=== PATIENT | female | born 1945 | race Caucasian/White ===

== ENCOUNTER 2021-01-27 10:24 | Inpatient (IN) | payer MEDICARE ==
[~2021-01-27] VITALS: Ht 170.2 cm; Wt 64.4 kg
[2021-01-27 11:50] LABS: BASOPHILS ABSOLUTE AUTO 0.04 K/mm3 (0.00-0.23); BASOPHILS PERCENT AUTO 0 % (0-2); EOSINOPHILS ABSOLUTE AUTO 0.13 K/mm3 (0.00-0.68); EOSINOPHILS PERCENT AUTO 2 % (0-6); Hematocrit 47.3 % (33.0-51.0); Hemoglobin 15.8 g/dL (11.5-16.0); IMMATURE GRAN ABSOLUTE AUTO 0.02 K/mm3 (0.00-0.10); IMMATURE GRAN PERCENT AUTO 0 % (0-1); LYMPHOCYTES ABSOLUTE AUTO 3.08 K/mm3 (0.84-5.20); LYMPHOCYTES PERCENT AUTO 35 % (21-46); MONOCYTES ABSOLUTE AUTO 0.81 K/mm3 (0.16-1.47); MONOCYTES PERCENT AUTO 9 % (4-13); Mean Corpuscular HGB Conc 33.4 g/dL (31.5-36.5); Mean Corpuscular Volume 87 fL (80-100); Mean Platelet Volume 10.1 fL (9.1-12.4); NEUTROPHILS ABSOLUTE AUTO 4.84 K/mm3 (1.96-9.15); NEUTROPHILS PERCENT AUTO 54 % (41-73); Platelet Count 243 K/mm3 (150-400); RDW Coefficient Variation 12.9 % (11.7-14.2); RDW Standard Deviation 41.1 fL (35.1-46.3); Red Blood Cell Count 5.44 M/mm3 (3.80-5.20); White Blood Cell Count 8.92 K/mm3 (4.00-11.30)
[2021-01-27 12:05] LABS: Alanine Aminotransfer (ALT/SGP 25 U/L (12-78); Albumin, Blood 4.2 g/dL (3.4-5.0); Albumin/Globulin Ratio 1.1 (0.8-1.8); Alk Phos 72 U/L (50-136); Anion Gap 10 mmol/L (6-16); Aspartate Aminotrans (AST/SGOT 24 U/L (12-37); Bilirubin, Total 0.6 mg/dL (0.1-1.0); Blood Urea Nitrogen 31 mg/dL (8-24); Bun/Creatinine Ratio 39.1 (12.0-20.0); CO2, Blood 21 mmol/L (21-32); Chloride, Blood 107 mmol/L (98-108); Creatinine, Blood 0.79 mg/dL (0.40-1.00); Globulin, Blood 3.7 g/dL (2.2-4.0); Glomerular Filtration Rate >60 (60-); Glucose, Blood 139 mg/dL (70-99); Potassium, Blood 4.3 mmol/L (3.5-5.5); Sodium, Blood 138 mmol/L (136-145); Total Protein, Blood 7.9 g/dL (6.4-8.2); Troponin I 0.314 ng/mL (0.000-0.040)
[2021-01-27] MEDS ORDERED: ALPRAZOLAM0.5 M1 PO (13:38)
[2021-01-27] MEDS ORDERED: Pravastatin Sod40 MG PO (13:39)
[2021-01-27 14:31] LABS: Source, Urine Clean Catch
[2021-01-27 14:47] LABS: Appearance, Urine Clear (Clear); Bilirubin, Urine Neg (Neg); Blood, Urine Neg (Neg); Color, Urine Yellow (P-Yellow); Glucose Qualitative, Urine Neg (Neg); Ketones, Urine 3+ (Neg); Leukocyte Esterase, Urine Neg (Neg); Nitrite, Urine Neg (Neg); Protein, Urine Neg (Neg); Specific Gravity, Urine 1.015 (1.003-1.022); Urobilinogen, Urine NORM (Normal)
--- NOTE | 2021-01-27 15:18 | NUR ---
Echocardiogram completed.
[2021-01-27] MEDS ORDERED: ATIVAN0.5 MG PO (16:47)
--- NOTE | 2021-01-27 18:23 | NUR ---
PT ADITTED FROM ER. SHE IS ALERT AND ORIENTED X3. SHE THOUGHT IT WAS DECEMBER. PT APPEARS TO HAVE ISSUES WITH SHORT TERM MEMORY. ACCORDING TO THIS IS NEW. PT IS ABLE TO AMBULATE TO THE RESTROOM. SHE IS PLEASANT AND COOPERATIVE WITH CARES THOUGH OFTEN FORGETFUL. CALL LIGHT WITHIN REACH
--- NOTE | 2021-01-27 18:55 | NUR ---
LAB REPORTED CRITICAL TROP 3.4 . DOCTOR NOTIFIED ALONG WITH CHARGE. PT TO MOVE TO PCU AND HEP DRIP STARTED. PT IS IN NO DISTRESS.
[2021-01-27 20:18] LABS: International Normalized Ratio 0.99; Prothrombin Time Results 10.7 Sec (9.7-11.5)
--- NOTE | 2021-01-27 21:08 | NUR ---
PT. TRANSFERRED TO PCU. PER MORGAN WHALEY RN OK TO TRANSFER PT. AND REPORT POST TRANSFER. PT. TAKEN FOR CT PRIOR TO PCU PER STAT ORDER. TRANSPORTED BY MICHELE PACHECO RN.
[2021-01-28 04:13] LABS: BASOPHILS ABSOLUTE AUTO 0.05 K/mm3 (0.00-0.23); BASOPHILS PERCENT AUTO 1 % (0-2); EOSINOPHILS ABSOLUTE AUTO 0.08 K/mm3 (0.00-0.68); EOSINOPHILS PERCENT AUTO 1 % (0-6); Hematocrit 42.9 % (33.0-51.0); Hemoglobin 14.1 g/dL (11.5-16.0); IMMATURE GRAN ABSOLUTE AUTO 0.02 K/mm3 (0.00-0.10); IMMATURE GRAN PERCENT AUTO 0 % (0-1); LYMPHOCYTES ABSOLUTE AUTO 3.99 K/mm3 (0.84-5.20); LYMPHOCYTES PERCENT AUTO 37 % (21-46); MONOCYTES ABSOLUTE AUTO 1.02 K/mm3 (0.16-1.47); MONOCYTES PERCENT AUTO 9 % (4-13); Mean Corpuscular HGB 29.1 pg (26.0-34.0); Mean Corpuscular HGB Conc 32.9 g/dL (31.5-36.5); Mean Corpuscular Volume 89 fL (80-100); NEUTROPHILS ABSOLUTE AUTO 5.67 K/mm3 (1.96-9.15); NEUTROPHILS PERCENT AUTO 52 % (41-73); Platelet Count 179 K/mm3 (150-400); RDW Coefficient Variation 13.2 % (11.7-14.2); RDW Standard Deviation 42.9 fL (35.1-46.3); Red Blood Cell Count 4.85 M/mm3 (3.80-5.20); White Blood Cell Count 10.83 K/mm3 (4.00-11.30)
[2021-01-28 04:38] LABS: Alanine Aminotransfer (ALT/SGP 18 U/L (12-78); Albumin, Blood 3.2 g/dL (3.4-5.0); Alk Phos 54 U/L (50-136); Anion Gap 7 mmol/L (6-16); Aspartate Aminotrans (AST/SGOT 36 U/L (12-37); Bilirubin, Total 0.7 mg/dL (0.1-1.0); Blood Urea Nitrogen 25 mg/dL (8-24); Bun/Creatinine Ratio 30.3 (12.0-20.0); CO2, Blood 24 mmol/L (21-32); Calcium, Blood 8.4 mg/dL (8.5-10.1); Chloride, Blood 109 mmol/L (98-108); Creatinine, Blood 0.83 mg/dL (0.40-1.00); Globulin, Blood 3.2 g/dL (2.2-4.0); Glomerular Filtration Rate >60 (60-); Glucose, Blood 102 mg/dL (70-99); Potassium, Blood 4.1 mmol/L (3.5-5.5); Sodium, Blood 140 mmol/L (136-145); Total Protein, Blood 6.4 g/dL (6.4-8.2)
--- NOTE | 2021-01-28 05:10 | NUR ---
PT UPDATE LAB CALLED TO NOTIFY OF CRITICAL PTT: >139. CALL PLACED TO PHARMACY. KALYAN IN PHARMACY WITH ORDERS TO TURN OFF PT'S HEPARIN FOR AN HOUR AND CONTINUE AT LESSER RATE PER EMAR.
--- NOTE | 2021-01-28 06:11 | NUR ---
SHIFT SUMMARY PT A&OX3, FOLLOWS DIRECTIONS BUT ASKS THE SAME QUESTION MULTIPLE TIMES. SOME SHORT TERM MEMORY CONFUSION. SP02>92% ON RA. TELEMETRY READS NSR, HR 70'S. PT DENIES PAIN. C/O OF FEELING ANXIOUS. HEPARIN INFUSED PER EMAR. DR ROBERTS IN PTS ROOM AFTER TRANSFER TO EXPLAIN PLAN FOR PT. ARMANDO SPOKE TO PT ABOUT CARDIOLOGY INPUT. THIS RN CALLED IN CARDIOLOGY CONSULT. CALL LIGHT IN REACH. WILL GIVE REPORT TO ONCOMING NURSE.
--- NOTE | 2021-01-28 10:30 | NUR ---
ALERT AND ORIENTED X4. AT TIMES ASKING REPETATIVE QUESTIONS. ON ROOM AIR SATING ABOVE 94%. COMPLAINS OF ONGOING COUGH, HAVE NOT OBSERVED. LUNGS SOUNDING CLEAR. TELE SHOWING SINUS WITH HR 80'S. DENIES CHEST PAIN/PRESSURE. SOFT BP. HEPARIN INFUSING. BOWEL TONES PRESENT. EPISODE OF NAUSEA AND ABDOMINAL PAIN THIS AM FOLLOWED BY DIARRHEA. ZOFRAN GIVEN WITH SOME RELIEF. OVERALL PATIENT STATES SHE IS FEELING WEAK. DR. GIBSON AWARE OF DIARRHEA THIS AM. PLAN FOR ANGIO LATER THIS AFTERNOON. NPO. WILL CONTINUE TO MONITOR.
--- NOTE | 2021-01-28 14:01 | NUR ---
BP REMAIN SOFT. NAUSEA AND ABDOMINAL CRAMPING RESOLVED. DENIES NEEDS/PAIN AT THIS TIME. RESTING IN BED AND WATCHING TV. HEPARIN INFUSING. WILL CONTINUE TO MONITOR.
--- NOTE | 2021-01-28 15:26 | NUR ---
PT LEFT FOR [facility] AT 1450. CALL PLACED TO PT MICHAEL TO UPDATE.
--- NOTE | 2021-01-28 17:49 | NUR ---
Supportive visit to [place]. She appeared a bit mentally foggy, but was pleasant and open to companionship. She smiles easily and expressed hope for recovery. She is non-anabaptist, but was appreciaitive of emotional support. [employer] services will remain available.
--- NOTE | 2021-01-28 19:29 | NUR ---
NO ACUTE CHANGES. PT RESTING IN BED. TR BAND IN PLACE, AIR DEFLATED. VITAL SIGNS STABLE. PATIENT DENIES PAIN AT THIS TIME.
--- NOTE | 2021-01-28 20:44 | NUR ---
TR BAND REMOVED AT APPROX 1999. SLIGHT BRUISING BY THE SITE. NO BLEEDING OR HEMATOMA. SITE SOFT. DRESSING APPLIED, ARM BOARD IN PLACE.
--- NOTE | 2021-01-29 00:58 | NUR ---
REPORT GIVEN TO NURSE FAM RN. PT TRANSFERRED TO ROOM 337 AT THIS TIME.
--- NOTE | 2021-01-29 06:23 | NUR ---
SHIFT SUMMARY PT WAS A TRANSFER DURING THE NIGHT FROM PCU 12, ARRIVING ON THE FLOOR AT 0053. SHE WAS ADMITTED FOR ELEVATED TROPONINS. SHE IS A&O X 4, SBA TO THE BATHROOM. PT IS POST ANGIO 1 DAY, SITE ON R WRIST C/D/I. NO C/O ACUTE CP, SOB OR NAUSEA. VITAL SIGNS STABLE. NO ACUTE CHANGES IN PT CONDITION NOTE DURING THE NIGHT. WILL CONTINUE TO MONITOR AND TREAT PER EMAR UNTIL HAND OFF TO DAY SHIFT RN.
[2021-01-29 09:05] LABS: BASOPHILS ABSOLUTE AUTO 0.02 K/mm3 (0.00-0.23); BASOPHILS PERCENT AUTO 0 % (0-2); EOSINOPHILS ABSOLUTE AUTO 0.13 K/mm3 (0.00-0.68); EOSINOPHILS PERCENT AUTO 2 % (0-6); Hematocrit 38.7 % (33.0-51.0); Hemoglobin 12.7 g/dL (11.5-16.0); IMMATURE GRAN ABSOLUTE AUTO 0.01 K/mm3 (0.00-0.10); IMMATURE GRAN PERCENT AUTO 0 % (0-1); LYMPHOCYTES ABSOLUTE AUTO 2.53 K/mm3 (0.84-5.20); LYMPHOCYTES PERCENT AUTO 42 % (21-46); MONOCYTES ABSOLUTE AUTO 0.72 K/mm3 (0.16-1.47); MONOCYTES PERCENT AUTO 12 % (4-13); Mean Corpuscular HGB 29.7 pg (26.0-34.0); Mean Corpuscular HGB Conc 32.8 g/dL (31.5-36.5); Mean Corpuscular Volume 90 fL (80-100); Mean Platelet Volume 10.3 fL (9.1-12.4); NEUTROPHILS ABSOLUTE AUTO 2.67 K/mm3 (1.96-9.15); NEUTROPHILS PERCENT AUTO 44 % (41-73); Platelet Count 172 K/mm3 (150-400); RDW Coefficient Variation 13.4 % (11.7-14.2); RDW Standard Deviation 44.8 fL (35.1-46.3); Red Blood Cell Count 4.28 M/mm3 (3.80-5.20); White Blood Cell Count 6.08 K/mm3 (4.00-11.30)
[2021-01-29 09:29] LABS: Alanine Aminotransfer (ALT/SGP 16 U/L (12-78); Albumin, Blood 2.9 g/dL (3.4-5.0); Alk Phos 49 U/L (50-136); Anion Gap 2 mmol/L (6-16); Aspartate Aminotrans (AST/SGOT 22 U/L (12-37); Bilirubin, Total 0.4 mg/dL (0.1-1.0); Blood Urea Nitrogen 20 mg/dL (8-24); Bun/Creatinine Ratio 23.3 (12.0-20.0); CO2, Blood 26 mmol/L (21-32); Calcium, Blood 8.2 mg/dL (8.5-10.1); Chloride, Blood 114 mmol/L (98-108); Creatinine, Blood 0.86 mg/dL (0.40-1.00); Globulin, Blood 2.8 g/dL (2.2-4.0); Glomerular Filtration Rate >60 (60-); Glucose, Blood 92 mg/dL (70-99); Potassium, Blood 4.1 mmol/L (3.5-5.5); Sodium, Blood 142 mmol/L (136-145); Total Protein, Blood 5.7 g/dL (6.4-8.2)
[2021-01-29] MEDS ORDERED: CARV3.125 PO (14:35)
[2021-01-29] MEDS ORDERED: FURO20 PO (14:36)
[2021-01-29] MEDS ORDERED: LISI5 PO (14:36)
--- NOTE | 2021-01-29 17:15 | NUR ---
DISCHARGE NOTE PATIENT DISCHARGED TO HOME. PATIENT ALERT AND ORIENTED THIS SHIFT. PATIENT WORKED WITH PT/OT IN THE ROOM THIS SHIFT. PATIENT INDEPENDENT IN THE ROOM AFTER WORKING WITH PT/OT. PATIENT STATES IMPROVEMENT IN RESPIRATION THIS SHIFT. PATIENT AND SPOUSE IN THE ROOM FOR DISCHARGE AND MEDICATION INSTRUCTIONS. QUESTIONS ANSWERED TO PATIENT'S SATISFACTION. IV REMOVED PRIOR TO DISCHARGE. PATIENT DRESSED INDEPENDENLY AT DISCHARGE. PATIENT TO VEHICLE BY WHEELCHAIR.
== END 2021-01-29 15:57 | disposition home or self-care (01) | DRG 286 ==
LOC: ER 10:24 → ERHOLD 10:25 → PCU 10:25 → MEDS 16:34 → PCU 20:53 → MEDS 01-28 11:06 → PCU 01-28 11:06 → MEDS 01-29 00:53
PROVIDERS: Family Medicine; Internal Medicine; Nurse Practitioner Acute Care; Physician Assistant; ADMIT Hospitalist
PROC: 4A023N7 Measurement of Cardiac Sampling and Pressure, Left Heart, Percutaneous Approach (ICD-10-PCS; principal; 2021-01-28)
PROC: B211YZZ Fluoroscopy of Multiple Coronary Arteries using Other Contrast (ICD-10-PCS; 2021-01-28)
DX: I51.81 Takotsubo syndrome (principal); G92 Toxic encephalopathy; I50.21 Acute systolic (congestive) heart failure; E78.00 Pure hypercholesterolemia, unspecified; Z79.899 Other long term (current) drug therapy
CPT/HCPCS: 36415; 70450; 71046; 71260; 76937; 80053; 81003; 83880; 84145; 84443; 84484; 85025; 85347; 85379; 85610; 85651; 85730; 86140; 93005; 93010; 93306; 93458; 96372; 96372-59; 96374; 96375; 96376; 97110; 97116; 97162; 97165; 97530; 99152; 99153; 99285-25; A9270; C1769; C1894; G0378; J1644; J1650; J2060; J2250; J2370; J2405; J3010; J7030; J7050; Q9967

== ENCOUNTER 2021-01-30 23:07 | Emergency (ER) | payer MEDICARE ==
[~2021-01-30] VITALS: Ht 170.2 cm; Wt 64.9 kg
[~2021-01-30 23:07] MED LIST: ALPRAZOLAM0.5 M1 PO; ATIVAN0.5 MG PO; CARV3.125 PO; FURO20 PO; LISI5 PO; Pravastatin Sod40 MG PO
[2021-01-30 23:52] LABS: BASOPHILS ABSOLUTE AUTO 0.03 K/mm3 (0.00-0.23); BASOPHILS PERCENT AUTO 1 % (0-2); EOSINOPHILS ABSOLUTE AUTO 0.26 K/mm3 (0.00-0.68); EOSINOPHILS PERCENT AUTO 4 % (0-6); Hematocrit 37.2 % (33.0-51.0); IMMATURE GRAN ABSOLUTE AUTO 0.01 K/mm3 (0.00-0.10); IMMATURE GRAN PERCENT AUTO 0 % (0-1); LYMPHOCYTES ABSOLUTE AUTO 3.09 K/mm3 (0.84-5.20); LYMPHOCYTES PERCENT AUTO 50 % (21-46); MONOCYTES ABSOLUTE AUTO 0.66 K/mm3 (0.16-1.47); MONOCYTES PERCENT AUTO 11 % (4-13); Mean Corpuscular HGB 28.8 pg (26.0-34.0); Mean Corpuscular HGB Conc 32.3 g/dL (31.5-36.5); Mean Corpuscular Volume 89 fL (80-100); Mean Platelet Volume 10.9 fL (9.1-12.4); NEUTROPHILS ABSOLUTE AUTO 2.14 K/mm3 (1.96-9.15); NEUTROPHILS PERCENT AUTO 35 % (41-73); Platelet Count 158 K/mm3 (150-400); RDW Coefficient Variation 13.2 % (11.7-14.2); RDW Standard Deviation 43.5 fL (35.1-46.3); Red Blood Cell Count 4.16 M/mm3 (3.80-5.20); White Blood Cell Count 6.19 K/mm3 (4.00-11.30)
[2021-01-31 00:13] LABS: Alanine Aminotransfer (ALT/SGP 21 U/L (12-78); Albumin, Blood 3.1 g/dL (3.4-5.0); Alk Phos 52 U/L (50-136); Anion Gap 5 mmol/L (6-16); Aspartate Aminotrans (AST/SGOT 22 U/L (12-37); Bilirubin, Total 0.2 mg/dL (0.1-1.0); Blood Urea Nitrogen 27 mg/dL (8-24); Bun/Creatinine Ratio 36.1 (12.0-20.0); CO2, Blood 26 mmol/L (21-32); Calcium, Blood 8.6 mg/dL (8.5-10.1); Chloride, Blood 113 mmol/L (98-108); Creatinine, Blood 0.75 mg/dL (0.40-1.00); Glomerular Filtration Rate >60 (60-); Glucose, Blood 116 mg/dL (70-99); Magnesium, Blood 2.1 mg/dL (1.6-2.4); Potassium, Blood 3.5 mmol/L (3.5-5.5); Sodium, Blood 144 mmol/L (136-145); Total Protein, Blood 6.1 g/dL (6.4-8.2); Troponin I 0.169 ng/mL (0.000-0.040)
== END 2021-01-31 01:50 | disposition home or self-care (01) ==
LOC: ER 23:07
PROVIDERS: Emergency Medicine
DX: I51.81 Takotsubo syndrome (principal); F41.9 Anxiety disorder, unspecified; Z79.899 Other long term (current) drug therapy
CPT/HCPCS: 36415; 71045; 80053; 83735; 83880; 84484; 85025; 93005; 93010; 96374; 99285-25; J2060

== ENCOUNTER → 2024-01-30 | Outpatient (CLI) | payer MEDICARE ==
[2024-01-30 19:34] LABS: Free Thyroxine 0.88 ng/dL (0.70-1.60); Thyroid Stimulating Hormone 2.95 uIU/mL (0.360-4.800)
[2024-02-02 02:09] LABS: TRIIODOTHYRONINE,TOTAL T3 TTL 109 ng/dL (80-200)
== END ==
LOC: LAB SHORT 17:09 → LAB 17:09
PROVIDERS: Nurse Practitioner Family
DX: E03.9 Hypothyroidism, unspecified (principal); R53.83 Other fatigue; D51.9 Vitamin B12 deficiency anemia, unspecified
CPT/HCPCS: 82607; 84439; 84443; 84480